=== PATIENT | male | born 1950 | race Caucasian/White ===

== ENCOUNTER 2017-09-10 14:00 | Outpatient (RCR) | payer OTHER ==
[2017-08-08 11:34] VITALS: BP 144/86
[~2017-09-10 14:00] MED LIST: ALBUTEROL0.09 MG/A4 INH; ALBUTEROL0.63 MG/3 INH; ALDACTONE 25MG25 MG PO; AMLODIPINE BESYL5 MG PO; AMOXICILLIN 8751 TAB PO; APHEN325 MG PO; ASPIR LOW81 MG PO; ATORVASTATIN CA20 MG PO; CARDI-OMEGA1000 MG PO; CEFDINIR300 MG PO; CYMBALTA60 M1 PO; FINASTERIDE5 M1 PO; FLOMAX 0.40.4 MG/CAP PO; GLIPIZIDE10 M2 PO; GLIPIZIDE10 MG PO; GLUCOPHAGE PO; KETOTIFEN5 ML OP; LASIX20 M1 PO; LEVAQUIN 5500 MG/TA1 PO; LEVEMIR100 U/M1 SQ; LOPRESSOR 225 MG/TAB PO; LOPRESSOR50 MG PO; LOSARTAN POTAS100 MG PO; LYRICA150 MG PO; METFORMIN500 MG PO; MEVACOR20 MG PO; MULTI-VITAMIN1 EACH PO; MULTIPLE VITAMI1 CAP PO; NAPROXEN500 MG PO; PREDNISONE20 M1 PO; PRILOSEC 20MG20 MG PO; RT SPIRIVA INH18 MCG INH; SODIUM CHLORIDE45 ML NAS; SPIRIVA RE2.5 MCG/Ac INH; SYMBICORT1 AE3 INH; VENLAFAXINE75 MG PO; VICTOZA 3-0.6 MG/0.1 SQ; VITAMIN D31000 IU PO
== END 2017-09-10 14:30 | disposition home or self-care (01) ==
LOC: PT 14:00
DX: J44.9 Chronic obstructive pulmonary disease, unspecified (principal); Z99.81 Dependence on supplemental oxygen

== ENCOUNTER 2021-09-02 20:46 | Emergency (ER) | payer OTHER ==
[~2021-09-02] VITALS: Ht 182.9 cm; Wt 84.3 kg
[~2021-09-02 20:46] MED LIST changes: -ALBUTEROL0.09 MG/A4 INH; -FLOMAX 0.40.4 MG/CAP PO; +FLOMAX0.4 MG PO; +RT ALBUTEROL CC18 GM IH
[2021-09-02 21:21] LABS: BASO # 0.02 K/mm3 (0.02-0.10); EOS # 0.13 K/mm3 (0.04-0.40); EOS % 1.2 % (0.0-4.0); HEMATOCRIT 37.9 % (42.0-52.0); LYMPH# 1.05 K/mm3 (1.50-4.00); MEAN CELL VOLUME 94 fl (78-100); MEAN CORPUSCULAR HEMOGLOBIN 30 pg (27-31); MEAN CORPUSCULAR HGB CONC 32 g/dL (33-37); MEAN PLATELET VOLUME 10.1 fl (7.4-10.4); MONO # 0.85 K/mm3 (0.20-0.80); NEU # 8.54 K/mm3 (1.40-6.50); PLATELET COUNT 300 K/mm3 (130-400); RED BLOOD COUNT 4.05 M/mm3 (4.20-5.60); RED CELL DISTRIBUTION WIDTH 13.9 % (11.5-14.5); WHITE BLOOD COUNT 10.6 K/mm3 (4.8-10.8)
[2021-09-02 21:32] LABS: ALBUMIN 3.7 g/dL (3.4-4.8); POTASSIUM 3.8 mmol/L (3.5-5.1)
[2021-09-02 21:33] LABS: CALCIUM 11.1 mg/dL (8.3-10.5)
[2021-09-02 21:35] LABS: TOTAL PROTEIN 7.4 g/dL (6.2-8.1)
[2021-09-02 21:36] LABS: TOTAL BILIRUBIN 0.5 mg/dL (0.2-1.2)
[2021-09-02] MEDS ORDERED: NORVASC 10MG10 MG PO (22:12)
[2021-09-02] MEDS ORDERED: BREZTRI AEROS10.7 GM IH (22:13)
[2021-09-02] MEDS ORDERED: HCTZ 25MG25 MG PO (22:15)
[2021-09-02] MEDS ORDERED: PROBIOTIC & ACI1 CAP PO (22:21)
[2021-09-02] MEDS ORDERED: LIDOCAINE PAIN1 EACH TP (22:22)
[2021-09-02] MEDS ORDERED: METOPROLOL TAR100 M1 PO (22:24)
[2021-09-02] MEDS ORDERED: OZEMPIC1 MG/0.71 SQ (22:27)
[2021-09-02] MEDS ORDERED: SINGULAIR PO (22:29)
[2021-09-02 23:14] VITALS: BP 103/61
== END 2021-09-02 23:14 | disposition other institution (70) ==
LOC: ED 20:46
PROVIDERS: Family Medicine
DX: J44.1 Chronic obstructive pulmonary disease with (acute) exacerbation (principal); E11.9 Type 2 diabetes mellitus without complications; I73.9 Peripheral vascular disease, unspecified; F17.210 Nicotine dependence, cigarettes, uncomplicated; Z20.822 Contact with and (suspected) exposure to COVID-19
CPT/HCPCS: J7120

== ENCOUNTER 2021-09-02 23:14 | Inpatient (IN) | payer OTHER ==
[~2021-09-02] VITALS: Ht 182.9 cm; Wt 87.9 kg
[~2021-09-02 23:14] MED LIST changes: +BREZTRI AEROS10.7 GM IH; +HCTZ 25MG25 MG PO; +LIDOCAINE PAIN1 EACH TP; +METOPROLOL TAR100 M1 PO; +NORVASC 10MG10 MG PO; +OZEMPIC1 MG/0.71 SQ; +PROBIOTIC & ACI1 CAP PO; +SINGULAIR PO
[2021-09-03] VITALS (7 sets, daily range): BP systolic 94–175; BP diastolic 56–74
[2021-09-04 06:12] VITALS: BP 126/69
[2021-09-04 09:33] VITALS: BP 146/75
[2021-09-04 14:20] VITALS: BP 130/72
[2021-09-04 17:59] VITALS: BP 125/64
[2021-09-04 22:10] VITALS: BP 128/76
[2021-09-05 05:54] VITALS: BP 132/69
[2021-09-05 09:20] VITALS: BP 128/70
[2021-09-05 13:10] LABS: BASO # 0.01 K/mm3 (0.02-0.10); HEMATOCRIT 34.5 % (42.0-52.0); HEMOGLOBIN 11.1 g/dL (13.5-18.0); LYMPH# 0.81 K/mm3 (1.50-4.00); MEAN CELL VOLUME 92 fl (78-100); MEAN CORPUSCULAR HEMOGLOBIN 30 pg (27-31); MEAN CORPUSCULAR HGB CONC 32 g/dL (33-37); MEAN PLATELET VOLUME 10.3 fl (7.4-10.4); MONO # 0.84 K/mm3 (0.20-0.80); NEU # 13.64 K/mm3 (1.40-6.50); PLATELET COUNT 307 K/mm3 (130-400); RED BLOOD COUNT 3.75 M/mm3 (4.20-5.60); RED CELL DISTRIBUTION WIDTH 13.7 % (11.5-14.5); WHITE BLOOD COUNT 15.6 K/mm3 (4.8-10.8)
[2021-09-05 13:15] LABS: ALBUMIN 3.5 g/dL (3.4-4.8); POTASSIUM 4.5 mmol/L (3.5-5.1)
[2021-09-05 13:16] LABS: CALCIUM 10.9 mg/dL (8.3-10.5)
[2021-09-05 13:17] LABS: TOTAL PROTEIN 6.6 g/dL (6.2-8.1)
[2021-09-05 13:19] LABS: TOTAL BILIRUBIN 0.3 mg/dL (0.2-1.2)
[2021-09-05 13:37] VITALS: BP 165/81
[2021-09-05 18:08] VITALS: BP 125/76
[2021-09-05 18:34] VITALS: BP 125/76
== END 2021-09-05 19:45 | disposition short-term general hospital (02) | DRG 181 ==
LOC: MED/SURG 23:14
PROVIDERS: Nurse Practitioner; ADMIT Family Medicine
DX: C34.90 Malignant neoplasm of unspecified part of unspecified bronchus or lung (principal); C79.51 Secondary malignant neoplasm of bone; J44.1 Chronic obstructive pulmonary disease with (acute) exacerbation; C78.7 Secondary malignant neoplasm of liver and intrahepatic bile duct; C77.1 Secondary and unspecified malignant neoplasm of intrathoracic lymph nodes; I10 Essential (primary) hypertension; I44.0 Atrioventricular block, first degree; E11.51 Type 2 diabetes mellitus with diabetic peripheral angiopathy without gangrene; G89.29 Other chronic pain; M54.9 Dorsalgia, unspecified; R63.4 Abnormal weight loss; Z68.24 Body mass index [BMI] 24.0-24.9, adult; F17.210 Nicotine dependence, cigarettes, uncomplicated; Z99.81 Dependence on supplemental oxygen; Z89.411 Acquired absence of right great toe; Z91.81 History of falling; Z20.822 Contact with and (suspected) exposure to COVID-19
CPT/HCPCS: A9585; J0456; J1650; J1815; J2060; J2270; J2920; J2930; J7050; Q9967